=== PATIENT | male | born 1995 | race Hispanic/Latino ===

== ENCOUNTER 2021-03-04 14:08 | Emergency (ER) | payer OTHER ==
[~2021-03-04] VITALS: Ht 188 cm; Wt 122.5 kg
[2021-03-04] MEDS ORDERED: ACETAMINOPHEN 500 MG TABLET PO ONE (15:00)
[2021-03-04] MEDS ORDERED: IBUPROFEN 600 MG TABLET PO ONE (15:00)
[2021-03-04] MEDS ORDERED: IBUP-2070 PO (16:04)
[2021-03-04] MEDS ORDERED: ONDA4TAB4 PO (16:04)
[2021-03-04 16:05] VITALS: BP 122/68
== END 2021-03-04 17:06 | disposition home or self-care (01) ==
LOC: EDH 14:08
DX: B34.9 Viral infection, unspecified (principal); Z20.822 Contact with and (suspected) exposure to COVID-19; F17.200 Nicotine dependence, unspecified, uncomplicated
CPT/HCPCS: 87635; 87804 ×2; 99283; C9803

== ENCOUNTER 2021-05-10 21:10 | Emergency (ER) | payer OTHER ==
[~2021-05-10] VITALS: Ht 188 cm; Wt 131.5 kg
[~2021-05-10 21:10] MED LIST: IBUP-2070 PO; ONDA4TAB4 PO
[2021-05-10 21:13] VITALS: BP 143/94
[2021-05-10] MEDS ORDERED: HYDROCODONE/ACETAMINOPHEN 5/325 MG TAB PO STA (21:25)
[2021-05-10] MEDS ORDERED: FIORIT PO (21:29)
== END 2021-05-10 22:01 | disposition home or self-care (01) ==
LOC: EDH 21:10
DX: R51.9 Headache, unspecified (principal); Z79.1 Long term (current) use of non-steroidal anti-inflammatories (NSAID); Z79.899 Other long term (current) drug therapy